=== PATIENT | female | born 1995 | race Caucasian/White ===

== ENCOUNTER 2024-08-18 14:44 | Emergency (ER) | payer OTHER, SELFPAY ==
[2024-08-18 14:50] VITALS: BP 108/79
[2024-08-18 15:15] VITALS: BMI 20.6
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
--- NOTE | 2024-08-18 17:36 | ED.GENMED ---
History of Present Illness
General
Chief Complaint: Crisis Evaluation
Source: patient
Exam Limitations: none
Time Seen by Provider: 08/18/24 16:15
Nursing documentation reviewed up to this point in time: agreed with
History of Present Illness
History of Present Illness:
Patient is a 28-year-old female with a past medical history of anxiety and PTSD who reports significant anxiety over the last several weeks. Patient reports that she is having great difficulty finding a psychiatrist. She is here in hopes of
speaking to a psychiatrist. Patient reports that she took sertraline for about 1 year but does not feel it helped her. She reports her primary care doctor then started her on BuSpar which she states caused her to have a headache. Patient reports
she is not nothing for anxiety and is having frequent panic attacks. Patient reports she is well supported by her mother. She denies suicidal and homicidal thoughts. She reports she uses marijuana once in a while to relax herself.
Past History
Past History
ED Past Medical History: Psychiatric (Anxiety)
ED Past Surgical History: Tonsilectomy
Social History
Tobacco: Non-smoker
Alcohol: Other
Drug: Marijuana
Personal: Single
Living: alone
Employment: Employed
Family History
Family History: Other
Review of Systems
Review of Systems
Allergies reviewed?: Yes
All Other Systems: ROS reviewed and negative except as documented in HPI and ROS
Constitutional: Reports no symptoms
EENT: Reports no symptoms
Respiratory: Reports no symptoms
Cardiac: Reports no symptoms
ABD/GI: Reports no symptoms
: Reports no symptoms
Musculoskeletal: Reports no symptoms
Skin: Reports no symptoms
Neurological: Reports no symptoms
Endocrine: Reports no symptoms
Hematologic/Lymphatic: Reports no symptoms
Psychiatric: Reports anxiety
Phy Exam
Physical Exam
Physical Exam:
Physical Exam
General: no apparent distress, not acutely ill
Neck: supple. no meningeal signs. normal psoterior pharynx
Heart: s1/s2 regular rate and rhythm, no murmur. equal radial pulses.
Lungs: no acute respiratory distress. clear bilaterally
Abdomen: normal bowel sounds. not tender. no CVAT
Neuro: alert and oriented. no focal neurological deficits
Skin: no rash
Psychiatric: well kept. interactive and cooperative
Extremities: no edema. no calf tenderness. negative homans. good distal pulses
Course
Orders/Labs/Results
Orders:
Orders
08/18/24 14:56
1:1 Observation - Suicide/ Violent Behavior As Directed
Crisis Consult Urgent
Reason for Consult: suicidal ideation
Vital Signs
Initial and Last Documented VS:
Initial Vital Signs
Temp Pulse Resp BP Pulse Ox
98.4 F 104 16 108/79 99
08/18/24 14:50 08/18/24 14:50 08/18/24 14:50 08/18/24 14:50 08/18/24 14:50
Last Documented Vital Signs
Temp Pulse Resp BP Pulse Ox
98.4 F 82 16 110/74 100
08/18/24 14:50 08/18/24 17:47 08/18/24 17:47 08/18/24 17:47 08/18/24 17:47
MDM/Problems Addressed
Differential Diagnosis Includes:
Acute on chronic anxiety, panic disorder,
MDM/Problems Addressed:
Patient presents with acute on chronic anxiety
Chronic conditions affecting care: Psychiatric illness
Acute Exacerbation and/or Progression of Chronic Illness: Psychiatric illness
*Pulse Oximetry
Patient hypoxic: no
*EKG
Interpreted by ED Provider?: NA
*Blade Balancer Interpretation
Rate: Blade Balancer- N/A
*Critical Care Note
Total Time (30-74mins, 75-104mins- exclusive of procedures): Not Applicable
Data Reviewed
Source: patient and family (Mother who is at the bedside)
Patient Management
Social determinants of health affecting care: Living situation and Strong social support
Escalation/DeEscalation of care consider admission/obs:
Zeeshan smith consulted and gave patient resources for psychiatrists as well as possible partial programs. Patient and mom are frustrated that they are unable to see a psychiatrist here in the ED. They very much want me to prescribe the medication
so she could start on something for her anxiety. I told patient is very important that she call her primary care doctor also for follow-up.
ED Attending Note
-
Portions of this chart may have been created with voice recognition software.� Occasional wrong word or��sound alike� substitutions may have occurred due to the inherent limitations of voice recognition software.
Discharge Plan
Departure
Patient Disposition: Home (Routine Discharge)
Date of Disposition: 08/18/24
Time of Disposition: 17:26
Patient with high blood pressure during this ER visit?: No
Condition: Good
Covid-19: Not Applicable
Discharge Problem:
Anxiety
Instructions: Anxiety in adults - ED discharge instructions
Prescriptions:
New
alprazolam [Xanax] 0.5 mg tablet
0.5 mg PO BID PRN (Reason: anxiety) Qty: 8 0RF
venlafaxine [Effexor XR] 37.5 mg capsule,extended release 24hr
37.5 mg PO DAILY Qty: 60 0RF
Rx Instructions:
Take 37.5 mg daily for the first week. If you tolerate this dose, please double the dose to 75 mg daily thereafter
Activity Restrictions/Additional Instructions:
Please call your insurance company to get a list of psychiatrists and please give them a call to arrange follow-up with a psychiatrist. You can also try the resources given to you by Zeeshan smith. Please reserve the Xanax only for acute severe
anxiety. Please do not drive while using the Xanax or drink alcohol or use marijuana.
Interventions
Interventions:
*Risk Screen - Suicide Last Done: 08/18/24 14:50
*General Assessment Last Done: 08/18/24 14:50
*Neglect/Abuse Screening Last Done: 08/18/24 15:15
*ED- Fall Risk Assessment Last Done: 08/18/24 15:15
*ED COVID-19 Vaccine History Last Done: 08/18/24 15:15
*Nursing Disposition Last Done: 08/18/24 17:47
ED-Psychological Assessment Last Done: 08/18/24 15:15
Discharge Date and Time
Discharge Date/Time: 08/18/24 17:40
Print Language: KOREAN
--- NOTE | 2024-08-18 17:46 | EDRN ---
Reviewed discharge instructions with patient. Verbalized understanding. Ambulated with steady gait to the lobby.
[2024-08-18 17:47] VITALS: BP 110/74
== END 2024-08-18 17:40 | disposition home or self-care (01) ==
LOC: EMR 14:44
PROVIDERS: EMERGENCY PHYSICIAN Emergency Medicine; FAMILY PHYSICIAN Nurse Practitioner Adult Health
DX: F41.9 Anxiety disorder, unspecified (principal); F12.90 Cannabis use, unspecified, uncomplicated
CPT/HCPCS: 99283